=== PATIENT | female | born 1990 | race Caucasian/White ===

== ENCOUNTER 2018-08-13 21:41 | Emergency (ER) | payer SELFPAY ==
[2011-08-22 07:46] VITALS: BP 103/60
[2018-08-13] MEDS ORDERED: KETOROLAC 30 MG/ML INJ ONE (22:21)
[2018-08-13] MEDS ORDERED: HYDROCODONE/APAP 10/325 TAB ONE (22:21)
--- NOTE | 2018-08-13 22:54 | EDPHYS ---
Physician Documentation [facility] Name: Stanislav Lucero Age: 27 yrs Sex: Female : 1990 Arrival Date: 08/13/2018 Time: 21:42 Bed 13 Private MD: ED Physician Sanjiv Oakes HPI: 08/13 22:21 This 27 yrs old Female presents to ER via Ambulatory with complaints of rn Toothache. 22:21 The patient presents with pain. The problem is located in the mouth. Onset: The rn symptoms/episode began/occurred today. Duration: The symptoms are continuous. Modifying factors: The symptoms are alleviated by nothing, the symptoms are aggravated by chewing. Severity of symptoms: At their worst the symptoms were moderate, in the emergency department the symptoms are unchanged. The patient has experienced a previous episode. Reports dental pain, started left wisdom teeth and shoots across jaw, no trauma, no swelling, no fever, has dental appointment in AM but OTC meds not working. . 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 - Social history:: Smoking status: Patient/guardian denies using tobacco. - Ebola Screening: : Patient denies travel to an Ebola-affected area in the 21 days before illness onset. - Family history:: not pertinent. - Hospitalizations: : No recent hospitalization is reported. ROS: 22:21 Constitutional: Negative for fever, chills, and weight loss, ENT: + dental pain, no rn trouble swallowing Neuro: Negative for headache, weakness, numbness, tingling, and seizure. Exam: 22:21 Constitutional: This is a well developed, well nourished patient who is awake, alert, rn appears uncomfortable Head/Face: Normocephalic, atraumatic. Eyes: Pupils equal round and reactive to light, extra-ocular motions intact. Lids and lashes normal. Conjunctiva and sclera are non-icteric and not injected. Cornea within normal limits. Periorbital areas with no swelling, redness, or edema. ENT: + poor dentition, + dental caries especially left lower molar and upper molar, no evidence of abscess or drainage, floor of mouth soft, no neck swelling. No crepitus. Vital Signs: 21:55 BP 113 / 66; Pulse 78; Resp 18; Temp 98.6; Pulse Ox 100% on R/A; Weight 61.23 kg (R); aj1 Height 4 ft. 11 in. (149.86 cm) (R); Pain 10/10; 22:53 BP 114 / 85; Pulse 99; Resp 16; Pulse Ox 99% on R/A; jb4 21:55 Body Mass Index 27.27 (61.23 kg, 149.86 cm) aj1 MDM: 21:57 Patient medically screened. rn 22:53 Differential diagnosis: dental caries. Data reviewed: vital signs, nurses notes, and as rn a result, I will discharge patient. Counseling: I had a detailed discussion with the patient and/or guardian regarding: the historical points, exam findings, and any diagnostic results supporting the discharge/admit diagnosis, the need for outpatient follow up, to return to the emergency department if symptoms worsen or persist or if there are any questions or concerns that arise at home. Response to treatment: the patient's symptoms have mildly improved after treatment, and as a result, I will discharge patient. Special discussion: I discussed with the patient/guardian in detail that at this point there is no indication for admission to the hospital. It is understood, however, that if the symptoms persist or worsen the patient needs to return immediately for re-evaluation. Based on the history and exam findings, there is no indication for further emergent testing or inpatient evaluation. I discussed with the patient/guardian the need to see a dentist for further evaluation of the symptoms. Administered Medications: 22:13 Drug: [place] 10 mg-325 mg 1 tabs Route: PO; jb4 22:55 Follow up: Response: No adverse reaction; Pain is decreased jb4 22:15 Drug: TORadol 30 mg Route: IM; Site: right gluteus; jb4 22:55 Follow up: Response: No adverse reaction; Pain is decreased jb4 22:53 Drug: Zofran 4 mg Route: PO; jb4 22:53 Follow up: Response: No adverse reaction; Medication administered at discharge. jb4 Disposition: 08/13/18 22:54 Discharged to Home. Impression: Dental caries. - Condition is Stable. - Discharge Instructions: Dental Pain. - Prescriptions for Clindamycin HCl 300 mg Oral Capsule - take 1 capsule by ORAL route every 6 hours for 10 days; 40 capsule. Ultram 50 mg Oral Tablet - take 1 tablet by ORAL route every 6 hours As needed; 15 tablet. Zofran ODT 4 mg Oral tablet,disintegrating - place 1 tablet by TRANSLINGUAL route every 8 hours As needed; 20 tablet. - Medication Reconciliation Form, Thank You Letter, Antibiotic Education, Prescription Opioid Use form. - Follow up: Private Physician; When: Tomorrow; Reason: Recheck today's complaints, Re-evaluation by your physician. - Problem is new. - Symptoms have improved. Signatures: Peg Salinas RN RN aj1 Sanjiv Oakes MD MD rn Bryson, James, RN RN jb4 Mackenzie Belle cc3 Corrections: (The following items were deleted from the chart) 23:19 22:54 08/13/2018 22:54 Discharged to Home. Impression: Dental caries. Condition is cc3 Stable. Forms are Medication Reconciliation Form, Thank You Letter, Antibiotic Education, Prescription Opioid Use. Follow up: Private Physician; When: Tomorrow; Reason: Recheck today's complaints, Re-evaluation by your physician. Problem is new. Symptoms have improved. rn
--- NOTE | 2018-08-13 22:54 | ER ---
Nurse's Notes [facility] Name: Stanislav Lucero Age: 27 yrs Sex: Female : 1990 Arrival Date: 08/13/2018 Time: 21:42 Bed 13 Private MD: Diagnosis: Dental caries Presentation: 08/13 21:53 Presenting complaint: Patient states: "yesterday I was throwing up at work all day and aj1 then last night I woke up with a toothache. I have an infected tooth and the pain has spread to my jaw and to my ear and I can't close my mouth" Patient reports that she has an appointment with a dentist tomorrow but she can't handle the pain. Transition of care: patient was not received from another setting of care. Onset of symptoms was August 13, 2018. Risk Assessment: Do you want to hurt yourself or someone else? Patient reports no desire to harm self or others. Initial Sepsis Screen: Does the patient meet any 2 criteria? No. Patient's initial sepsis screen is negative. Does the patient have a suspected source of infection? No. Patient's initial sepsis screen is negative. Care prior to arrival: None. 21:53 Method Of Arrival: Ambulatory aj1 21:53 Acuity: FADY 4 aj1 Triage Assessment: 21:55 General: Appears uncomfortable, Behavior is cooperative, anxious, quiet. Pain: aj1 Complains of pain in mouth Pain currently is 10 out of 10 on a pain scale. EENT: Reports pain in mouth. Neuro: Level of Consciousness is awake, alert, obeys commands. Cardiovascular: Patient's skin is warm and dry. Respiratory: Airway is patent Respiratory effort is even, unlabored, Respiratory pattern is regular, symmetrical. 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 - Social history:: Smoking status: Patient/guardian denies using tobacco. - Ebola Screening: : Patient denies travel to an Ebola-affected area in the 21 days before illness onset. - Family history:: not pertinent. - Hospitalizations: : No recent hospitalization is reported. Screenin:00 Abuse screen: Denies threats or abuse. Nutritional screening: No deficits noted. jb4 Tuberculosis screening: No symptoms or risk factors identified. Fall Risk None identified. Assessment: 22:00 General: Appears in no apparent distress. uncomfortable, Behavior is calm, cooperative, jb4 appropriate for age. Pain: Complains of pain in mouth Pain does not radiate. Pain currently is 10 out of 10 on a pain scale. Neuro: Level of Consciousness is awake, alert, obeys commands, Oriented to person, place, time, situation. Cardiovascular: Patient's skin is warm and dry. Respiratory: Airway is patent Respiratory effort is even, unlabored, Respiratory pattern is regular, symmetrical. GI: No signs and/or symptoms were reported involving the gastrointestinal system. : No signs and/or symptoms were reported regarding the genitourinary system. EENT: No signs and/or symptoms were reported regarding the EENT system. Derm: Skin is intact, Skin is pink, warm \\T\\ dry. Musculoskeletal: Circulation, motion, and sensation intact. Vital Signs: 21:55 BP 113 / 66; Pulse 78; Resp 18; Temp 98.6; Pulse Ox 100% on R/A; Weight 61.23 kg (R); aj1 Height 4 ft. 11 in. (149.86 cm) (R); Pain 10/10; 22:53 BP 114 / 85; Pulse 99; Resp 16; Pulse Ox 99% on R/A; jb4 21:55 Body Mass Index 27.27 (61.23 kg, 149.86 cm) aj1 ED Course: 21:42 Patient arrived in ED. am2 21:54 Triage completed. aj1 21:55 Arm band placed on Patient placed in an exam room. aj1 21:57 Sanjiv Oakes MD is Attending Physician. rn 22:00 Patient has correct armband on for positive identification. Bed in low position. Call jb4 light in reach. Side rails up X 1. Pulse ox on. NIBP on. 22:02 Antonio Morales, HIGINIO is Primary Nurse. jb4 22:55 No provider procedures requiring assistance completed. Patient did not have IV access jb4 during this emergency room visit. Administered Medications: 22:13 Drug: [place] 10 mg-325 mg 1 tabs Route: PO; jb4 22:55 Follow up: Response: No adverse reaction; Pain is decreased jb4 22:15 Drug: TORadol 30 mg Route: IM; Site: right gluteus; jb4 22:55 Follow up: Response: No adverse reaction; Pain is decreased jb4 22:53 Drug: Zofran 4 mg Route: PO; jb4 22:53 Follow up: Response: No adverse reaction; Medication administered at discharge. jb4 Outcome: 22:53 Discharge ordered by . rn 22:55 Discharged to home ambulatory. jb4 22:55 Condition: stable 22:55 Discharge instructions given to patient, Instructed on discharge instructions, follow up and referral plans. medication usage, Demonstrated understanding of instructions, follow-up care, medications, Prescriptions given X 3. 23:19 Patient left the ED. cc3 Signatures: Peg Salinas RN RN aj1 Sanjiv Oakes MD MD rn Bryson, James, RN RN jb4 Keerthi Montanez Charlene cc3
[2018-08-13] MEDS ORDERED: ONDANSETRON 4 MG (ODT) TAB ONE (23:07)
== END 2018-08-13 23:19 | disposition home or self-care (01) ==
LOC: ER 21:41
DX: K02.9 Dental caries, unspecified (principal); Z88.0 Allergy status to penicillin
CPT/HCPCS: 96372; 99283

== ENCOUNTER 2019-06-05 22:20 | Emergency (ER) | payer OTHER, SELFPAY ==
[2019-06-05] MEDS ORDERED: KETOROLAC 30 MG/ML INJ ONE (23:05)
[2019-06-05] MEDS ORDERED: NA CHLORIDE 0.9% 1,000 ML ONE (23:05)
[2019-06-05] MEDS ORDERED: MORPHINE 4 MG/ML SYR ONE (23:41)
[2019-06-05] MEDS ORDERED: ONDANSETRON 4 MG/2 ML VIAL ONE (23:41)
[2019-06-06 00:12] LABS: Absolute Lymphocytes (CBC) 1.7 K/uL (0.7-4.9); Basophils % 0.2 % (0-1.3); Lymphocytes % 36.4 % (15.3-44.8); RBC Red Blood Cell Count 4.37 M/uL (3.86-4.86)
[2019-06-06 00:24] LABS: Albumin 3.3 g/dL (3.4-5.0); Bilirubin Direct 0.1 mg/dL (0-0.2); Bilirubin Total 0.4 mg/dL (0.2-1.0); Protein, Total 6.7 g/dL (6.4-8.2)
[2019-06-06 01:59] LABS: Urine Blood NEGATIVE (NEG); Urine Glucose NEGATIVE (NEG); Urine Protein NEGATIVE (NEG); Urine Specific Gravity 1.025 (1.005-1.030)
[2019-06-06] MEDS ORDERED: ONDANSETRON 4 MG/2 ML VIAL ONE (02:11)
[2019-06-06] MEDS ORDERED: MORPHINE 2 MG/ML SYR ONE (02:11)
--- NOTE | 2019-06-06 02:53 | ER ---
Nurse's Notes [facility] Name: Stanislav Lucero Age: 28 yrs Sex: Female : 1990 Arrival Date: 06/05/2019 Time: 22:29 Bed 18 Private MD: Trae Wray E Diagnosis: Lower abdominal pain, unspecified;Anemia in chronic diseases classified elsewhere Presentation: 06/05 22:43 Presenting complaint: Right flank pain and nausea x 3 days. Transition of care: patient hb was not received from another setting of care. Onset of symptoms was June 02, 2019. Risk Assessment: Do you want to hurt yourself or someone else? Patient reports no desire to harm self or others. Initial Sepsis Screen: Does the patient meet any 2 criteria? No. Patient's initial sepsis screen is negative. Does the patient have a suspected source of infection? No. Patient's initial sepsis screen is negative. Care prior to arrival: None. 22:43 Method Of Arrival: Ambulatory hb 22:43 Acuity: FADY 3 hb Triage Assessment: 22:46 General: Appears in no apparent distress. Behavior is calm, cooperative. Pain: Pain hb currently is 9 out of 10 on a pain scale. EENT: No signs and/or symptoms were reported regarding the EENT system. Neuro: Level of Consciousness is awake, alert, obeys commands, Oriented to person, place, time, situation. Cardiovascular: Capillary refill < 3 seconds Patient's skin is warm and dry. Respiratory: Airway is patent Respiratory effort is even, unlabored, Respiratory pattern is regular, symmetrical. GI: No signs and/or symptoms were reported involving the gastrointestinal system. : Reports flank pain. Derm: Skin is intact, is healthy with good turgor, Skin is pink, warm \T\ dry. Musculoskeletal: No signs and/or symptoms reported regarding the musculoskeletal system. 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 - Coronavirus screen:: The patient has NOT traveled to [place] in the past 14 days. The patient has NOT had contact with known/suspected case of Coronavirus? Proceed with normal triage procedures. - Social history:: Smoking status: Patient denies any tobacco usage or history of. - Ebola Screening: : No symptoms or risks identified at this time. Screenin:47 Abuse screen: Denies threats or abuse. Denies injuries from another. Nutritional hb screening: No deficits noted. Tuberculosis screening: No symptoms or risk factors identified. Fall Risk None identified. Assessment: 22:47 General: see triage assessment. hb 23:41 Reassessment: Pt c/o pain 10/10, restless, RASS +2, MATTIE Salazar notified, morphine hb administered as ordered. Awaiting CT at this time. 06/06 00:37 Reassessment: Patient appears in no apparent distress at this time. Patient and/or hb family updated on plan of care and expected duration. Pain level reassessed. Patient is alert, oriented x 3, equal unlabored respirations, skin warm/dry/pink. 01:35 Reassessment: Patient appears in no apparent distress at this time. Patient and/or hb family updated on plan of care and expected duration. Pain level reassessed. Patient is alert, oriented x 3, equal unlabored respirations, skin warm/dry/pink. 02:15 Reassessment: Pt c/o pain 8-9/10. MATTIE Peng notified, repeat morphine and Zofran hb administered as ordered. VSS. Awaiting CT results at this time . 03:07 Reassessment: Patient is alert, oriented x 3, equal unlabored respirations, skin bb warm/dry/pink. pt verbalized understanding of and agrees to plan of care discharge instructions given pt ambulated with steady gait to exit. Vital Signs: 06/05 22:44 BP 116 / 64; Pulse 89; Resp 16; Temp 98.2; Pulse Ox 98% on R/A; Weight 56.7 kg; Height hb 4 ft. 11 in. (149.86 cm); Pain 9/10; 23:15 BP 122 / 68; Pulse 88; Resp 15; Pulse Ox 99% on R/A; hb 23:42 BP 108 / 68; Pulse 84; Resp 16; Pulse Ox 99% on R/A; Pain 10/10; hb 06/06 00:37 BP 102 / 47; Pulse 86; Resp 15; Pulse Ox 99% on R/A; hb 01:30 BP 93 / 56; Pulse 68; Resp 15; Temp 97.8; Pulse Ox 100% on R/A; hb 02:30 BP 106 / 62; Pulse 93; Resp 15; Pulse Ox 99% on R/A; Pain 3/10; hb 03:06 Pulse Ox 98.1% on R/A; bb 06/05 22:44 Body Mass Index 25.25 (56.70 kg, 149.86 cm) hb ED Course: 06/05 22:29 Patient arrived in ED. es 22:29 Trae Wray MD is Private Physician. es 22:36 Tricia Zamorano, HIGINIO is Primary Nurse. hb 22:44 Triage completed. hb 22:44 Arm band placed on. hb 22:45 Danish Salazar PA is PHCP. cp 22:45 Bryson Davalos MD is Attending Physician. cp 22:47 Patient has correct armband on for positive identification. Bed in low position. Call hb light in reach. Side rails up X 1. 23:10 Inserted saline lock: 20 gauge in right antecubital area, using aseptic technique. hb Blood collected. 06/06 03:09 No provider procedures requiring assistance completed. IV discontinued, intact, bb bleeding controlled, No redness/swelling at site. Pressure dressing applied. Administered Medications: 06/05 23:10 Drug: NS 0.9% 1000 ml Route: IV; Rate: 1 bolus; Site: right antecubital; hb 23:10 Drug: TORadol - Ketorolac 15 mg Route: IVP; Site: right antecubital; hb 23:41 Follow up: Response: No adverse reaction; Pain is unchanged, physician notified hb 23:41 Drug: morphine 4 mg Route: IVP; Site: right antecubital; hb 06/06 00:15 Follow up: Response: No adverse reaction hb 06/05 23:41 Drug: Zofran 4 mg Route: IVP; Site: right antecubital; hb 06/06 00:15 Follow up: Response: No adverse reaction hb 02:11 Drug: morphine 2 mg Route: IVP; Site: right antecubital; hb 02:11 Drug: Zofran 4 mg Route: IVP; Site: right antecubital; hb Outcome: 02:53 Discharge ordered by . cp 03:09 Discharged to home ambulatory. bb 03:09 Condition: stable 03:09 Discharge instructions given to patient, Instructed on discharge instructions, follow up and referral plans. medication usage, Demonstrated understanding of instructions, follow-up care, medications, Prescriptions given X 2. 03:10 Patient left the ED. bb Signatures: Cookie Churchill Brenda, RN RN bb Danish Salazar PA PA cp Baxter, Heather RN RN hb
--- NOTE | 2019-06-06 02:54 | EDPHYS ---
Physician Documentation [facility] Name: Stanislav Lucero Age: 28 yrs Sex: Female : 1990 Arrival Date: 06/05/2019 Time: 22:29 Bed 18 Private MD: Trae Wray E ED Physician Bryson Davalos HPI: 06/05 23:00 This 28 yrs old Female presents to ER via Ambulatory with complaints of cp Possible kidney infection. 23:00 The patient complains of pain in the right low back. The pain radiates to the right cp lower quadrant and anterior aspect of right lateral abdomen and posterior aspect of right lateral abdomen. Onset: The symptoms/episode began/occurred 3 day(s) ago. 23:00 Associated signs and symptoms: Pertinent positives: dysuria, Pertinent negatives: cp diarrhea, fever, hematuria, pain radiating to the lower extremities, vomiting. [employer]: 22:44 LMP 05/24/2019 hb Historical: - Allergies: 22:46 PENICILLINS; hb 22:46 Codeine; hb - Home Meds: 22:46 None [Active]; hb - PMHx: 22:46 Endometrosis; hb - PSHx: 22:46 Gastric Bypass; Tubal ligation; hb - Immunization history:: Adult Immunizations up to date. - Coronavirus screen:: The patient has NOT traveled to [place] in the past 14 days. The patient has NOT had contact with known/suspected case of Coronavirus? Proceed with normal triage procedures. - Social history:: Smoking status: Patient denies any tobacco usage or history of. - Ebola Screening: : No symptoms or risks identified at this time. ROS: 23:10 Eyes: Negative for injury, pain, redness, and discharge. cp 23:10 Constitutional: Negative for body aches, chills, fever. 23:10 ENT: Negative for drainage from ear(s), ear pain, sore throat, difficulty swallowing, difficulty handling secretions. 23:10 Cardiovascular: Negative for chest pain. 23:10 Respiratory: Negative for cough, shortness of breath, wheezing. 23:10 Abdomen/GI: Positive for abdominal pain. 23:10 Back: Positive for flank pain, on the right. 23:10 Skin: Negative for rash. cp 23:10 Neuro: Negative for altered mental status, headache, weakness. 23:10 : Positive for urinary symptoms, flank pain, Negative for vaginal bleeding, vaginal cp discharge. 23:10 All other systems are negative. Exam: 23:20 Constitutional: The patient appears in no acute distress, alert, awake, non-toxic, well cp developed, well nourished, uncomfortable. 23:20 Head/Face: Normocephalic, atraumatic. cp 23:20 Eyes: Periorbital structures: appear normal, Conjunctiva: normal, no exudate, no injection, Sclera: no appreciated abnormality, Lids and lashes: appear normal, bilaterally. 23:20 ENT: External ear(s): are unremarkable, Nose: is normal, Mouth: is normal, Posterior pharynx: is normal, airway is patent, no erythema, no exudate. 23:20 Chest/axilla: Inspection: normal, Palpation: is normal, no crepitus, no tenderness. 23:20 Cardiovascular: Rate: normal, Rhythm: regular. 23:20 Respiratory: the patient does not display signs of respiratory distress, Respirations: normal, no use of accessory muscles, labored breathing, is not present, Breath sounds: are clear throughout, no decreased breath sounds. 23:20 Abdomen/GI: Inspection: abdomen appears normal, Bowel sounds: active, all quadrants, Palpation: soft, in all quadrants, moderate abdominal tenderness, in the posterior aspect of right lateral abdomen, anterior aspect of right lateral abdomen and right lower quadrant, rebound tenderness, is not appreciated. 23:20 Back: pain, that is moderate, of the right low back, ROM is painful, with all movement. Vital Signs: 22:44 BP 116 / 64; Pulse 89; Resp 16; Temp 98.2; Pulse Ox 98% on R/A; Weight 56.7 kg; Height hb 4 ft. 11 in. (149.86 cm); Pain 9/10; 23:15 BP 122 / 68; Pulse 88; Resp 15; Pulse Ox 99% on R/A; hb 23:42 BP 108 / 68; Pulse 84; Resp 16; Pulse Ox 99% on R/A; Pain 10/10; hb 02/15 00:37 BP 102 / 47; Pulse 86; Resp 15; Pulse Ox 99% on R/A; hb 01:30 BP 93 / 56; Pulse 68; Resp 15; Temp 97.8; Pulse Ox 100% on R/A; hb 02:30 BP 106 / 62; Pulse 93; Resp 15; Pulse Ox 99% on R/A; Pain 3/10; hb 03:06 Pulse Ox 98.1% on R/A; bb 06/05 22:44 Body Mass Index 25.25 (56.70 kg, 149.86 cm) hb MDM: 06/05 22:52 Patient medically screened. cp 23:00 Differential diagnosis: nephrolithiasis, pyelonephritis, UTI, appendicitis. cp 06/06 02:39 Data reviewed: vital signs, nurses notes, lab test result(s), radiologic studies. cp 06/05 22:58 Order name: Basic Metabolic Panel cp 06/05 22:58 Order name: CBC with Diff 06/05 22:58 Order name: Creatinine for Radiology 06/05 22:58 Order name: Hepatic Function cp 06/05 22:58 Order name: Lipase 06/05 22:58 Order name: Urine Microscopic Only 06/05 23:20 Order name: Urine Dipstick--Ancillary (enter results) 06/05 23:20 Order name: Urine --Ancillary (enter results) 06/05 23:55 Order name: Creatinine (Radiology Only); Complete Time: 01:02 EDMS 06/06 00:22 Order name: CBC with Automated Diff EDRI 06/06 01:03 Interpretation: Normal except: HGB 8.2; HCT 27.0; MCV 61.8; MCH 18.7; MCHC 30.3; RDW cp 18.2. 06/06 00:25 Order name: Basic Metabolic Panel; Complete Time: 01:02 EDMS 06/06 01:03 Interpretation: Normal except: CL 109; CA 7.9. cp 06/06 00:25 Order name: Liver (Hepatic) Function; Complete Time: 01:02 EDMS 06/06 01:06 Interpretation: Normal except: ALB 3.3; A/G 1.0. cp 06/06 00:25 Order name: Lipase; Complete Time: 01:02 EDMS 06/06 02:38 Interpretation: LIP 45; Reviewed. 06/06 02:03 Order name: Urine --Ancillary; Complete Time: 02:10 EDRI 06/05 22:58 Order name: IV Saline Lock; Complete Time: 23:18 cp 06/05 22:58 Order name: Labs collected and sent; Complete Time: 23:18 cp 06/05 22:58 Order name: Urine Dipstick-Ancillary (obtain specimen); Complete Time: 23:18 cp 06/05 22:58 Order name: Urine Test (obtain specimen); Complete Time: 23:18 cp 06/05 22:58 Order name: CT Stone Protocol cp 06/06 02:03 Order name: Urine Dipstick-Ancillary; Complete Time: 02:10 EDMS 06/06 02:38 Order name: PO challenge; Complete Time: 02:42 cp Administered Medications: 06/05 23:10 Drug: NS 0.9% 1000 ml Route: IV; Rate: 1 bolus; Site: right antecubital; hb 23:10 Drug: TORadol - Ketorolac 15 mg Route: IVP; Site: right antecubital; hb 23:41 Follow up: Response: No adverse reaction; Pain is unchanged, physician notified hb 23:41 Drug: morphine 4 mg Route: IVP; Site: right antecubital; hb 06/06 00:15 Follow up: Response: No adverse reaction hb 06/05 23:41 Drug: Zofran 4 mg Route: IVP; Site: right antecubital; hb 06/06 00:15 Follow up: Response: No adverse reaction hb 02:11 Drug: morphine 2 mg Route: IVP; Site: right antecubital; hb 02:11 Drug: Zofran 4 mg Route: IVP; Site: right antecubital; hb Disposition: 03:15 Co-signature as Attending Physician, Bryson Davalos MD I agree with the assessment and kdr plan of care. Disposition: 06/06/19 02:53 Discharged to Home. Impression: Lower abdominal pain, unspecified, Anemia in chronic diseases classified elsewhere. - Condition is Stable. - Discharge Instructions: Abdominal Pain, Adult, Anemia, Nonspecific. - Prescriptions for Bentyl 20 mg Oral Tablet - take 1 tablet by ORAL route every 6 hours As needed; 30 tablet. Zofran 4 mg Oral Tablet - take 1 tablet by ORAL route every 12 hours As needed; 20 tablet. - Medication Reconciliation Form, Thank You Letter, Antibiotic Education, Prescription Opioid Use form. - Follow up: Private Physician; When: 2 - 3 days; Reason: Recheck today's complaints. - Problem is new. - Symptoms have improved. Signatures: Dispatcher [employer] EDMS Bryson Davalos MD MD kdr Shanae Hall RN RN bb Danish Salazar PA PA cp Tricia Zamorano, RN RN Corrections: (The following items were deleted from the chart) 01:03 01:03 Normal except: CL 109. cp cp 02:37 / 23:10 : Positive for urinary symptoms, vaginal bleeding, vaginal discharge, cp cp 06/06 02:37 06/05 23:10 All other systems are negative, cp cp 06/06 02:53 02:53 06/06/2019 02:53 Discharged to Home. Impression: Lower abdominal pain, cp unspecified. Condition is Stable. Forms are Medication Reconciliation Form, Thank You Letter, Antibiotic Education, Prescription Opioid Use. Follow up: Private Physician; When: 2 - 3 days; Reason: Recheck today's complaints. Problem is new. Symptoms have improved. cp 03:10 02:53 06/06/2019 02:53 Discharged to Home. Impression: Lower abdominal pain, bb unspecified; Anemia in chronic diseases classified elsewhere. Condition is Stable. Discharge Instructions: Abdominal Pain, Adult, Anemia, Nonspecific. Forms are Medication Reconciliation Form, Thank You Letter, Antibiotic Education, Prescription Opioid Use. Follow up: Private Physician; When: 2 - 3 days; Reason: Recheck today's complaints. Problem is new. Symptoms have improved. cp
[2019-06-06 03:16] LABS: Urine Bacteria <20 /HPF (<20); Urine Culture Reflex Order NOT NEEDED; Urine RBC <5 /HPF (NONE SEEN)
[2019-06-06 03:25] VITALS: TEMP 97.8
[2019-06-06 03:27] VITALS: BP 106/62; O2SAT 99
[2019-06-06 04:53] LABS: Blood Morphology Comment NOTED (NOT SEEN); Platelet Estimate ADEQ; Urine White Blood Cell Casts OK
[2019-06-06 04:54] LABS: Anisocytosis 1+; Hypochromasia 2+; Ovalocytes 1+; Poikilocytosis 1+; Polychromasia 1+
--- NOTE | 2019-06-08 12:25 | RAD REPORT ---
EXAM DESCRIPTION: CT - Stone Protocol - 06/06/2019 4:24 am CLINICAL HISTORY: FLANK PAIN TECHNIQUE: Contiguous axial images obtained through the abdomen and pelvis following the uneventful administration of IV contrast. Coronal and sagittal reformatted images were provided. This exam was performed according to our departmental dose-optimization program, which includes autom ated exposure control, adjustment of the mA and/or kV according to patient size and/or use of iterati ve reconstruction technique. COMPARISON: None available for comparison. FINDINGS: Lung bases: Clear Liver: The liver is enlarged. Gallbladder and biliary system: Prior cholecystectomy. Intrahepatic and extrahepatic biliary dilatati on. The common duct measures 12 mm in diameter. Pancreas: Grossly unremarkable Spleen: The spleen is mildly enlarged. Adrenals: Unremarkable Kidneys: No calculi. No hydronephrosis. Bowel: Prior gastric bypass. Moderate stool. No obstruction. No appreciable mucosal thickening. Appendix: Normal caliber appendix. No findings to suggest acute appendicitis. Urinary bladder: Unremarkable Reproductive: Unremarkable as visualized Lymph nodes: No pathologically enlarged lymph nodes. Peritoneum: No focal fluid collection. No free air. Vessels: No abdominal aortic aneurysm. Abdominal wall: Unremarkable Bones: Unremarkable IMPRESSION: 1. No renal, ureteral or bladder calculi. No evidence for renal obstruction. 2. Other findings as above. 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 The interpreting radiologist is f ully responsible for the content of the report.
== END 2019-06-06 03:10 | disposition home or self-care (01) ==
LOC: ER 22:20
DX: R10.30 Lower abdominal pain, unspecified (principal); D64.9 Anemia, unspecified; Z88.0 Allergy status to penicillin; Z88.5 Allergy status to narcotic agent
CPT/HCPCS: 85025; 80048; 36415; 81025; 80076; 81003; 81015; 83690; 76377; 74176; 96375; 96374; 99284; J2270; J7030; J2405 ×2

== ENCOUNTER 2021-12-27 14:38 | Emergency (ER) | payer OTHER ==
[2011-08-22 07:46] VITALS: BP 103/60
--- OUTSIDE RECORDS SUMMARY | 2021-12-27 14:42 | XMS REPORT | Continuity of Care Document ---
:1990 Author Organization [facility] t Address [address] [place] [address] Care Team Providers Name Role Phone Srinivasan King Attending Clinician Unavailable SRINIVASAN KING Attending Clinician Unavailable Srinivasan King Attending Clinician Nilesh Javier Attending Clinician Unavailable SRINIVASAN KING Admitting Clinician Unavailable Srinivasan King Admitting Clinician Problems Condition Condition Condition Status Onset Resolution Last Treating Co mments Source Name Details Category Date Date Treatment Clinician Date ENDOMETRIO ENDOMETRI Diagnosis Active 2019-042020-03-10 Memoria SIS, OSIS, 05-02 13:34:00 l ANEMIA-N80 ANEMIA-N80 00:00: He rmann .9/D64.9 .9/D64.9 00 Active 03/02/2020 [place] Anemia Anemia Problem Active 2020-03-11 Abdiel nguyen (disorder) (disorder) 22:19:43 l Active Abhay Problem 03/11/2020 MH [place] Endometrio Endometri Problem Active 2020-03-11 Memoria sis osis 22:19:43 l (disorder) (disorder) He rmann Active Problem 03/11/2020 [place] Allergies, Adverse Reactions, Alerts Allergy Allergy Status Severity Reaction(s) Onset Inactive Treating Comm ents Source Name Type Date Date Clinician amoxicil amoxicil Active Memori a frankie frankie raman Blank penicill penicill Active Memori a in in l Abhay codeine codeine Active Memoria sulfate sulfate l Abhay Social History Social Habit Start Date Stop Date Quantity Comments Source Social History 2020-03-03 2020-03-03 [facility] 19:53:19 19:53:19 Medications Ordered Filled Start Stop Current Ordering Indication Dosage Frequency Signature Comments Components Source Medication Medication Date Date Medication? Clinician (SIG) Name Name Docusate 2019-04 No Notes: Memoria Sodium 100 1-18 (Same as: l MG Oral 15:00: Colace) Abhay Capsule 00 (Do Not Crush) Docusate 2019-04 Yes 100 mg = 1 Mem oria Sodium 100 1-18 cap, PO, l MG Oral 14:08: BID, 0 [place] Capsule 00 Refill(s) acetaminoph 2019-04 No Notes: Max Memoria en 1-17 acetaminop l 00:00: hen 4000 [place] 00 mg/day (4 gm/day). (Same as: Tylenol Extra Strength) Acetaminoph 2019-04 No Notes: Abdiel nguyen en 1-16 Infuse l 17:00: over 15 Abhay 00 minutes Do not exceed 4gm/day of acetaminop hen MEDICATION WASTE Product Size: 1000 mg Product Wasted: ___ mg Tramadol 2019-04 No Notes: Not Mem oria 1-16 to exceed l 16:10: 400mg/day. [place] 00 (Same As: Ultram) Morphine 2019-04 No Notes: Memoria 1-16 (Same l 16:10: as:MORPhin [place] 00 e Sulfate) Ondansetron 2019-04 No Notes: Abdiel nguyen 1-16 (Same as: l 16:10: Zofran) Abhay 00 MEDICATION WASTE Product Size: 4 mg Product Wasted: ___ mg Fentanyl 2019-04 No 25 Memoria 1-16 microgram, l 15:58: Route: IV, Abhay 00 ONCE, Dosing Weight 55.994, kg, Start date: 03/07/20 9:58:00 [employer], Stop date: 03/07/20 9:58:00 [employer] Fentanyl 2019-04 No 25 Memoria 1-16 microgram, l 15:43: Route: IV, Abhay 00 ONCE, Dosing Weight 55.994, kg, Start date: 03/07/20 9:43:00 [employer], Stop date: 03/07/20 9:43:00 [employer] glycopyrrol 2019-04 No Route: IV, Memoria ate (ANES) 1-16 Drug form: l 15:39: INJ, ONCE, Stop date: 03/07/20 9:39:00 [employer] neostigmine 2019-04 No Route: IV, Memoria (ANES) 1-16 Drug form: l 15:39: INJ, ONCE, Stop date: 03/07/20 9:39:00 [employer] ondansetron 2019-04 No Route: IV, Memoria (ANES) 1-16 Drug form: l 15:39: INJ, ONCE, Stop date: 03/07/20 9:39:00 [employer] Morphine 2019-04 No Notes: Memoria 1-16 (Same l 15:24: as:MORPhin e Sulfate) Fentanyl 2019-04 No Notes: Memoria 1-16 (Same as: l 15:24: Sublimaze) Preservati ve free. Oxycodone 2019-04 No Notes: Memori a 1-16 (Same as: l 15:24: 'Roxicodon e) Hydromorpho 2019-04 No Notes: Abdiel nguyen ne -16 Same as: l 15:24: Dilaudid Flumazenil 2019-04 No Notes: Memor ia 1-16 (Same as: l 15:24: Romazicon) Naloxone 2019-04 No Notes: Memoria 1-16 Same as l 15:24: Narcan Ondansetron 2019-04 No Notes: Abdiel nguyen 1-16 (Same as: l 15:24: Zofran) MEDICATION WASTE Product Size: 4 mg Product Wasted: ___ mg ePHEDrine 2019-04 No Route: IV, Me moria (ANES) 1-16 Drug form: l 15:10: INJ, ONCE, Stop date: 03/07/20 9:10:00 [employer] succinylcho 2019-04 No Route: IV, Memoria line (ANES) 1-16 Drug form: l 14:55: INJ, ONCE, Stop date: 03/07/20 8:55:00 [employer] hydromorpho 2019-04 No Route: IV, Memoria ne (ANES) 1-16 Drug form: l 14:50: INJ, ONCE, Stop date: 03/07/20 8:50:00 [employer] dexamethaso 2019-04 No Route: IV, Memoria ne (ANES) 1-16 Drug form: l 14:35: INJ, ONCE, Stop date: 03/07/20 8:35:00 [employer] fentaNYL 2019-04 No Route: IV, Mem oria (ANES) 1-16 Drug form: l 14:30: INJ, ONCE, Stop date: 03/07/20 8:30:00 [employer] propofol 2019-04 No Route: IV, Mem oria (ANES) -16 Drug form: l 14:30: INJ, ONCE, Stop date: 03/07/20 8:30:00 [employer] rocuronium 2019-04 No Route: IV, M emoria (ANES) 05-07 Drug form: l 14:30: INJ, ONCE, Stop date: 03/07/20 8:30:00 [employer] ceFAZolin 2019-04 No Route: IV, Me moria (ANES) 05-07 Drug form: l 14:30: INJ, ONCE, Stop date: 03/07/20 8:30:00 [employer] lidocaine 2019-04 No Route: IV, Me moria (ANES) 1-16 Drug form: l 14:30: INJ, ONCE, Stop date: 03/07/20 8:30:00 [employer] Lactated 2019-04 No Route: IV, Mem oria Ringers 05-07 Total l Injection 13:46: Volume: [place] nn IV (ANES) 00 1,000, 1000 mL Start date: 03/07/20 7:46:00 [employer], Stop date: 03/07/20 8:46:00 [employer] Calcium 2019-04 No 1,000 mL, Memor ia Chloride 05-07 Rate: 125 l 0.0014 13:25: ml/hr, Abhay MEQ/ML / 00 Infuse Potassium over: 8 Chloride hr, Route: 0.004 IV, Dosing MEQ/ML / Weight Sodium 55.994 kg, Chloride Total 0.103 Volume: MEQ/ML / 1,000, Sodium Start Lactate date: 0.028 03/07/20 MEQ/ML 7:25:00 Injectable [employer], Solution Duration: 30 day, Stop date: 04/06/20 7:24:00 [employer], 1.54, m2, 0 Calcium 2019-04 No 1,000 mL, Memor ia Chloride 16 Rate: 75 l 0.0014 12:13: ml/hr, [place] MEQ/ML / 00 Infuse Potassium over: 13.3 Chloride hr, Route: 0.004 IV, Dosing MEQ/ML / Weight Sodium 56.636 kg, Chloride Total 0.103 Volume: MEQ/ML / 1,000, Sodium Start Lactate date: 0.028 20 MEQ/ML 6:13:00 Injectable [employer], Solution Duration: 30 day, Stop date: 04/06/20 6:12:00 [employer]EL[employer], 1.55, m2, 0 Acetaminoph 2019-04 No Notes: Max Memoria en 05-07 acetaminop l 12:13: hen 4000 [place] 00 mg/day (4 gm/day). (Same as: Tylenol Extra Strength) gabapentin 2019-04 No Notes: Memor ia -16 (Same as: l 12:13: Neurontin) Abhay 00 Famotidine 2019-04 No Notes: Memor ia -16 (Same as: l 12:13: Pepcid) Abhay 00 Can be dilute in 5-10cc NS IVP: Slow IV push over at least 2 minutes. ceFAZolin + 2019-04 No Notes: Abdiel nguyen sterile 05-07 (Same As: l water 20 mL 11:00: Ancef, Herm candi 00 Kefzol) MEDICATION WASTE Product Size: 1000 mg Product Wasted: ___ mg Escitalopra 2019-04 Yes 20 mg = 1 M emoria m 20 MG -12 tab, PO, l Oral Tablet 19:46: Daily, # He rmann [Lexapro] 00 30 tab, 0 Refill(s) Buspar 2019-04 Yes See Memoria 12 Instructio l 19:45: ns, 5 mg Abhay 00 PO TID, 0 Refill(s) Vital Signs Vital Name Observation Time Observation Value Comments Source Temperature Oral (F) 2020-03-09 09:39:00 98.3 F [facility] Heart Rate 2020-03-09 09:39:00 [facility] Abhay Respitory Rate 2020-03-09 09:39:00 Memori al Abhay Systolic (mm Hg) 2020-03-09 09:39:00 Abdiel rial Abhya Diastolic (mm Hg) 2020-03-09 09:39:00 Mem orial Abhay Temperature Oral (F) 2020-03-09 05:27:00 98.3 F [facility] [place] Heart Rate 2020-03-09 05:27:00 [facility] Abhay Respitory Rate 2020-03-09 05:27:00 Memori al [place] Systolic (mm Hg) 2020-03-09 05:27:00 Abdiel rial [place] Diastolic (mm Hg) 2020-03-09 05:27:00 Mem orial [place] Temperature Oral (F) 2020-03-09 01:53:00 98.6 F [facility] [place] Heart Rate 2020-03-09 01:53:00 [facility] Abhay Respitory Rate 2020-03-09 01:53:00 Memori al [place] Systolic (mm Hg) 2020-03-09 01:53:00 Abdiel rial Abhay Diastolic (mm Hg) 2020-03-09 01:53:00 Mem orial [place] Weight 2020-03-07 12:25:00 [facility] [place] BMI Calculated 2020-03-07 12:25:00 Memori al Abhay Systolic (mm Hg) 2020-03-03 19:44:00 Abdiel rial [place] Diastolic (mm Hg) 2020-03-03 19:44:00 Mem orial [place] Height 2020-03-03 18:48:00 147.32 cm [facility] [place] Weight 2020-03-03 18:48:00 [facility] [place] BMI Calculated 2020-03-03 18:48:00 Memori al Abhay Procedures Procedure Date / Time Performed Performing Clinician Sourc e Cholecystectomy [facility] Abhay Gastric bypass [facility] Abhay LEEP [facility] Ab[facility] Tubal ligation [facility] [place] Encounters Start End Encounter Admission Attending Care Care Encounter Source Date/Time Date/Time Type Type Clinicians Facility Department ID 2020-04-19 2020-04-19 Outpatient CHRISTIANO King [id number] 09:40:00 09:40:[address] O[facility] 2020-03-28 2020-03-28 Outpatient CHRISTIANO King [id number] [facility] 09:03:00 09:03:[address] OBGYN 2020-03-07 2020-03-09 Inpatient [facility] [id number] [facility] 11:46:00 15:13:00 raymundo Blank 00 l [place] nn 2020-03-07 2020-03-09 Inpatient FERNANDO, MHFB [facility]FB [id number] [facility] 05:46:00 09:13:00 GENE 2020-03-07 2020-03-09 Outpatient Fernando, MHSL [facility] [id number] 05:46:00 09:13:00 Gene 00 [place] 2020-03-07 2020-03-07 Outpatient Fernando, SWOBGYN SWOBGYN [id number] [facility] 13:48:00 13:48:[address] OBGYN 2020-03-07 2020-03-07 Outpatient Javier, SWOBGYN SWOBGYN [id number] [facility] 13:48:00 13:48:[address] OBGYN 2020-03-07 2020-03-07 Outpatient Fernando, MHSL SL [id number] 07:30:00 07:30:00 Gene 00 Blake 2020-03-03 2020-03-03 Outpatient Fernando, SWOBGYN SWOBGYN [id number] [facility] 11:04:00 11:04:[address] OBGYN 2020-03-02 2020-03-02 Outpatient Fernando, SWOBGYN SWOBGYN [id number] [facility] 08:20:00 08:20:[address] OBGYN 2019-12-31 2019-12-31 Outpatient Fernando, SWOBGYN SWOBGYN [id number] [facility] 11:06:00 11:06:[address] OBGYN 2019-12-29 2019-12-29 Outpatient Fernando, SWOBGYN SWOBGYN [id number] [facility] 09:35:00 09:35:[address] OBGYN 2019-12-23 2019-12-23 Outpatient Fernando, SWOBGYN SWOBGYN [id number] [facility] 10:26:00 10:26:[address] OBGYN Results Test Description Test Time Test Comments Results Result Comments Source [facility] 2020-03-08 11:41:00 Test Item Value Reference Range Interpretation Comme nts Hgb (test code = Hgb) 8.5 12.0-16.0 [id number] 11:41:00 Test Item Value Reference Range Interpretation Comments Hct (test code = Hct) 26.1 36.0-48.0 [id number] 12:13:00 Test Item Value Reference Range Interpretation Comments U Preg (test code = U Negative (03/07/20 6:13 Preg) AM) [facility]OMTS3066-[facility]-85 19:40:00 Test Item Value Reference Range Interpretation Comments Coronavirus (COVID-19) Not Detected OLAMIDE (test code = *NA*(03/03/20 1:40 Coronavirus (COVID-19) PM) OLAMIDE) [facility] [place] [id number] 19:29:00 Test Item Value Reference Range Interpretation Comments ABO/Rh (test code = ABO/Rh) A POS [facility] [place] [id number] 19:29:00 Test Item Value Reference Range Interpretation Comments Antibody Scrn (test Negative (03/03/20 code = Antibody Scrn) 1:29 PM) [id number] 19:27:00 Test Item Value Reference Range Interpretation Comments Segs (test code = Segs) 57.0 45.0-75.0 [facility] Bro[id number] 19:27:00 Test Item Value Reference Range Interpretation Comments Lymphocytes (test code = Lymphocytes) 32.0 20.0-40.0 [facility] Bro[id number] 19:27:00 Test Item Value Reference Range Interpretation Comments Monocytes (test code = Monocytes) 10.8 2.0-12.0 [facility] [id number] 19:27:00 Test Item Value Reference Range Interpretation Comments Basophils (test code = 0.2 See_Comment [Aut omated message] The Basophils) system which ge nerated this result tra nsmitted reference range : <=1.0. The reference r nomi was not used to int erpret this result as normal/abnormal . [facility] Bro[id number] 19:27:00 Test Item Value Reference Range Interpretation Comments Neutrophils # (test code = Neutrophils 2.2 1.5-8.1 #) [id number] 19:27:00 Test Item Value Reference Range Interpretation Comments Lymphocytes # (test code = Lymphocytes 1.2 1.0-5.5 #) [facility] CenterKsnudyhVZGBQIHQQF2442-05-26 19:27:00 Test Item Value Reference Range Interpretation Comments Monocytes # (test code 0.4 See_Comment [Aut omated message] The = Monocytes #) system which generated this result tra nsmitted reference range : <=0.8. The reference r nomi was not used to int erpret this result as normal/abnormal . [facility] CenterFlmanovVIRGBYPZFG9736-40-00 19:27:00 Test Item Value Reference Range Interpretation Comments Microcyte (test code = 3+ *NA*(03/03/20 Microcyte) 1:27 PM) [place] [id number] 19:27:00 Test Item Value Reference Range Interpretation Comments Hypochrom (test code = 1+ (03/03/20 1:27 Hypochrom) PM) [facility] [id number] 19:27:00 Test Item Value Reference Range Interpretation Comments WBC (test code = WBC) 3.9 3.7-10.4 [facility] [id number] 19:27:00 Test Item Value Reference Range Interpretation Comments RBC (test code = RBC) 4.40 4.20-5.40 [facility] Cent[id number] 19:27:00 Test Item Value Reference Range Interpretation Comments Hgb (test code = Hgb) 9.0 12.0-16.0 [facility] [id number] 19:27:00 Test Item Value Reference Range Interpretation Comments Hct (test code = Hct) 28.8 36.0-48.0 [place] [id number] 19:27:00 Test Item Value Reference Range Interpretation Comments MCV (test code = MCV) 65.3 80.0-98.0 [place] [id number] 19:27:00 Test Item Value Reference Range Interpretation Comments MCH (test code = MCH) 20.4 pg 27.0-31.0 [place] [id number] 19:27:00 Test Item Value Reference Range Interpretation Comments MCHC (test code = MCHC) 31.2 32.0-36.0 [facility] Cent[id number] 19:27:00 Test Item Value Reference Range Interpretation Comments RDW (test code = RDW) 20.4 11.5-14.5 [facility] [id number] 19:27:00 Test Item Value Reference Range Interpretation Comments Platelet (test code = Platelet) 349 491-450 [facility] Cent[id number] 19:27:00 Test Item Value Reference Range Interpretation Comments MPV (test code = MPV) 8.0 7.4-10.4 [facility]
--- NOTE | 2021-12-27 15:28 | RAD REPORT ---
EXAM DESCRIPTION: RAD - Chest Single View - 12/27/2021 3:16 pm CLINICAL HISTORY: CHEST PAIN Chest pain. COMPARISON: CHEST PA AND LAT 2 VIEW dated 02/05/2015 FINDINGS: Portable technique limits examination quality. The lungs are grossly clear. The heart is normal in size. No displaced fractures. IMPRESSION: No acute intrathoracic process suspected.
[2021-12-27 15:47] LABS: Absolute Lymphocytes (CBC) 1.5 K/uL (0.7-4.9); Hematocrit 28.8 % (36.0-45.0); Lymphocytes % 32.5 % (15.3-44.8); MCV 63.4 fL (80-100); MPV 8.3 fL (7.6-11.3); RBC Red Blood Cell Count 4.53 M/uL (3.86-4.86)
[2021-12-27 16:08] LABS: BUN Blood Urea Nitrogen 14 mg/dL (7-18); Bicarbonate 28 mmol/L (21-32); Glomerular Filtration Rate 116 ml/min (=/>90); Glucose Level 97 mg/dL (74-106); Potassium 3.9 mmol/L (3.5-5.1); Sodium Level 139 mmol/L (136-145)
[2021-12-27 16:09] LABS: Troponin High Sensitivity < 3.0 pg/mL (<58.9)
[2021-12-27 16:27] LABS: Urine Blood Negative (Negative); Urine Glucose Negative (Negative); Urine Protein Negative (Negative)
[2021-12-27 16:42] LABS: Urine Mucus Slight /HPF (None Seen); Urine RBC <5 /HPF (None Seen)
[2021-12-27 16:43] LABS: Blood Morphology Comment NOTED (NOT SEEN); Hypochromasia 1+; Platelet Estimate ADEQ; White Blood Cell Scan OK (OK)
--- NOTE | 2021-12-27 17:07 | EDPHYS ---
[facility] Name: Stanislav Lucero Age: 31 yrs Sex: Female : 1990 Arrival Date: 12/27/2021 Time: 14:39 Bed 12 Private MD: Trae Wray E ED Physician Allen Leon HPI: 12/27 14:58 This 31 yrs old Female presents to ER via Unassigned with complaints of Chest Pain, UTI.ms3 14:58 1-year-old female with past medical history of urinary tract infections presents for ms3 chest tightness that began 3 hours prior to arrival. Patient states her discomfort is 7/10 described as being tight located in the center of her chest. Patient denies alleviating or inciting factors. Patient endorses nausea, shortness of breath, urinary frequency. Patient denies vomiting, dysuria.. ROS: 14:58 Constitutional: Negative for fever, and chills. Neck: Negative for injury, pain, and ms3 swelling. 14:58 Respiratory: Negative for shortness of breath, cough, wheezing, and pleuritic chest pain, Abdomen/GI: Negative for abdominal pain, nausea, vomiting, diarrhea, and constipation, MS/Extremity: Negative for injury and deformity, Skin: Negative for injury, rash, and discoloration. 14:58 Cardiovascular: Positive for chest pain. 14:58 : Positive for urinary frequency. 14:58 All other systems are negative. Exam: 14:58 Constitutional: This is a well developed, well nourished patient who is awake, alert, ms3 and in no acute distress. Head/Face: Normocephalic, atraumatic. Chest/axilla: Normal chest wall appearance and motion. Nontender with no deformity. Cardiovascular: Regular rate and rhythm with a normal S1 and S2. No gallops, murmurs, or rubs. Normal PMI, no JVD. No pulse deficits. Respiratory: Lungs have equal breath sounds bilaterally, clear to auscultation and percussion. No rales, rhonchi or wheezes noted. No increased work of breathing, no retractions or nasal flaring. Abdomen/GI: Soft, non-tender, with normal bowel sounds. No distension or tympany. No guarding or rebound. No evidence of tenderness throughout. Skin: Warm, dry with normal turgor. Normal color with no rashes, no lesions, and no evidence of cellulitis. MS/ Extremity: Pulses equal, no cyanosis. Neurovascular intact. Full, normal range of motion. Psych: Awake, alert, with orientation to person, place and time. Behavior, mood, and affect are within normal limits. 16:26 ECG was reviewed by the Attending Physician. ms3 MDM: 14:57 Patient medically screened. ms3 14:58 Differential diagnosis: abnormal EKG, acute myocardial infarction, chest wall pain. ms3 17:05 HEART Score: History: Slightly Suspicious (0), ECG: Normal (0), Age: < or = 45 years ms3 (0), Risk Factors: No Risk Factors Known (0), Troponin: < or = 1 x Normal Limit (0), Total Score = 0. 17:05 Data reviewed: vital signs, nurses notes, lab test result(s), EKG, radiologic studies, ms3 and as a result, I will discharge patient. Counseling: I had a detailed discussion with the patient and/or guardian regarding: the historical points, exam findings, and any diagnostic results supporting the discharge/admit diagnosis, lab results, radiology results, the need for outpatient follow up, to return to the emergency department if symptoms worsen or persist or if there are any questions or concerns that arise at home. Special discussion: Based on the patient's history, exam, and Dx evaluation, there is no indication for emergent intervention or inpatient Tx. It is understood by the patient/guardian that if the Sx's persist or worsen they need to return immediately for re-evaluation. 12/27 14:58 Order name: Basic Metabolic Panel; Complete Time: 16:52 ms3 12/27 14:58 Order name: CBC with Diff; Complete Time: 16:52 ms3 12/27 14:58 Order name: Troponin HS; Complete Time: 16:52 ms3 12/27 14:58 Order name: Urine Microscopic Only; Complete Time: 16:52 ms3 12/27 16:27 Order name: Urine Dipstick-Ancillary; Complete Time: 16:52 EDMS 12/27 16:27 Order name: Urine --Ancillary (enter results); Complete Time: 17:05 bd 12/27 14:58 Order name: XRAY Chest (1 view); Complete Time: 15:46 ms3 12/27 14:58 Order name: EKG; Complete Time: 14:59 ms3 12/27 14:58 Order name: Cardiac monitoring; Complete Time: 16:35 ms3 12/27 14:58 Order name: EKG - Nurse/Tech; Complete Time: 16:35 ms3 12/27 14:58 Order name: IV Saline Lock; Complete Time: 16:35 ms3 12/27 14:58 Order name: Labs collected and sent; Complete Time: 16:35 ms3 12/27 16:43 Order name: CBC Smear Scan; Complete Time: 16:52 EDMS 12/27 14:58 Order name: O2 Per Protocol; Complete Time: 16:35 ms3 12/27 14:58 Order name: O2 Sat Monitoring; Complete Time: 16:35 ms3 12/27 14:58 Order name: Urine Dipstick-Ancillary (obtain specimen); Complete Time: 16:39 ms3 12/27 14:58 Order name: Urine Test (obtain specimen); Complete Time: 16:39 ms3 EC:26 Rate is 57 beats/min. Rhythm is regular. QRS Sulph[place] is Normal. TN interval is normal. ms3 Clinical impression: Sinus bradycardia. Interpreted by me. Reviewed by me. Administered Medications: No medications were administered Disposition Summary: 12/27/21 17:06 Discharge Ordered Location: Home ms3 Condition: Stable ms3 Diagnosis - Chest pain, unspecified ms3 - Urinary frequency ms3 - Anemia, unspecified ms3 Followup: ms3 - With: Trae Wray MD - When: 2 - 3 days - Reason: Re-evaluation by your physician Discharge Instructions: - Discharge Summary Sheet ms3 - Anemia ms3 - Nonspecific Chest Pain, Adult ms3 Forms: - Medication Reconciliation Form ms3 - Thank You Letter ms3 - Antibiotic Education ms3 - Prescription Opioid Use ms3 Signatures: Dispatcher [employer] EDAllen Daniels DO DO ms3
--- NOTE | 2021-12-27 17:07 | ER ---
Nurse's Notes [facility] Name: Stanislav Lucero Age: 31 yrs Sex: Female : 1990 Arrival Date: 12/27/2021 Time: 14:39 Bed 12 Private MD: Trae Wray E Diagnosis: Chest pain, unspecified;Urinary frequency;Anemia, unspecified Presentation: 12/27 15:49 Chief complaint: Patient states: left lower back and side pain. Coronavirus screen: At iw this time, the client does not indicate any symptoms associated with coronavirus-19. Ebola Screen: Patient negative for fever greater than or equal to 101.5 degrees Fahrenheit, and additional compatible Ebola Virus Disease symptoms Patient denies exposure to infectious person. Patient denies travel to an Ebola-affected area in the 21 days before illness onset. No symptoms or risks identified at this time. Initial Sepsis Screen: Does the patient meet any 2 criteria? Does the patient have a suspected source of infection? No. Patient's initial sepsis screen is negative. Risk Assessment: Do you want to hurt yourself or someone else? Patient reports no desire to harm self or others. Onset of symptoms was December 27, 2021. 15:49 Method Of Arrival: Ambulatory iw 15:49 Acuity: FADY 3 iw Triage Assessment: 16:50 General: Appears in no apparent distress. Behavior is calm, cooperative. iw Screenin:59 Abuse screen: Denies threats or abuse. Denies injuries from another. Nutritional iw screening: No deficits noted. Tuberculosis screening: No symptoms or risk factors identified. Assessment: 16:58 Reassessment: Patient appears in no apparent distress at this time. Patient and/or iw family updated on plan of care and expected duration. Pain level reassessed. Patient is alert, oriented x 3, equal unlabored respirations, skin warm/dry/pink. 17:30 Reassessment: Patient appears in no apparent distress at this time. Patient and/or iw family updated on plan of care and expected duration. Pain level reassessed. Patient is alert, oriented x 3, equal unlabored respirations, skin warm/dry/pink. Pain: Complains of pain in back and chest Pain does not radiate. Pain began. Cardiovascular: Patient's skin is warm and dry. Rhythm is sinus bradycardia. ED Course: 14:39 Patient arrived in ED. am2 14:39 Trae Wray MD is Private Physician. am2 14:53 Allen Leon DO is Attending Physician. ms3 15:17 XRAY Chest (1 view) In Process Unspecified. EDMS 15:17 Harika Driver, RN is Primary Nurse. iw 15:42 Initial lab(s) drawn, by me, sent to lab. Inserted saline lock: 22 gauge in right iw antecubital area, using aseptic technique. 15:53 Triage completed. iw 15:53 Arm band placed on. iw 16:00 Patient has correct armband on for positive identification. Pulse ox on. iw 17:06 Trae Wray MD is Referral Physician. ms3 17:38 No provider procedures requiring assistance completed. Patient maintains SpO2 iw saturation greater than 95% on room air. 17:38 IV discontinued, intact, bleeding controlled, No redness/swelling at site. Pressure iw dressing applied. Administered Medications: No medications were administered Medication: 17:00 VIS not applicable for this client. iw Outcome: 17:06 Discharge ordered by . ms3 17:38 Discharged to home ambulatory. iw 17:38 Condition: good 17:38 Discharge instructions given to patient, Instructed on discharge instructions, follow up and referral plans. Demonstrated understanding of instructions, follow-up care. 17:39 Patient left the ED. iw Signatures: Dispatcher [employer] EDHarika Marin, HIGINIO RN Keerthi Montanez am2 Allen Leon DO DO ms3 Corrections: (The following items were deleted from the chart) 12/28 07:58 09 17:38 Discharge instructions given to patient, Instructed on discharge iw instructions, follow up and referral plans. Demonstrated understanding of instructions, follow-up care, medications, iw
[2021-12-27] MEDS ORDERED: KETOROLAC 30 MG/ML INJ ONE (17:41)
--- NOTE | 2021-12-28 10:53 | EKG ---
Test Date: 2021-12-27 Test Time: 16:26:43 Pharmacoepidemiologist: GUILLAUME MEASUREMENT RESULTS: Intervals: Rate: 57 OK: 160 QRSD: 80 QT: 444 QTc: 432 [place]: P: 47 OK: 160 QRS: 28 T: 62 INTERPRETIVE STATEMENTS: Sinus bradycardia Otherwise normal ECG No previous ECG available for comparison Electronically Signed On 12-28-21 10:50:16 CDT by Santi Mejia
== END 2021-12-27 17:39 | disposition home or self-care (01) ==
LOC: ER 14:38
DX: R07.89 Other chest pain (principal); R35.0 Frequency of micturition; D64.9 Anemia, unspecified
CPT/HCPCS: 36415; 71045; 80048; 81003; 81015; 81025; 84484; 85025; 93005; 99285